=== PATIENT | female | born 1965 | race Caucasian/White ===

== ENCOUNTER → 2025-01-13 09:23 | Outpatient (CLI) | payer OTHER ==
[~2025-01-13 09:23] MED LIST: SYNTHROID50 MCG
[2025-01-13 10:22] LABS: HEMATOCRIT 38.1 % (36.0-45.00); MEAN CELL VOLUME 94.3 fL (80.00-100.00); MEAN CORPUSCULAR HEMOGLOBIN 32.2 pg (27.00-32.0); MEAN CORPUSCULAR HGB CONC 34.2 g/dl (32.0-36.0); PLATELET COUNT 243 K/uL (150-450); RED BLOOD COUNT 4.04 M/uL (4.00-6.00)
[2025-01-13 11:33] LABS: BILIRUBIN TOTAL 0.62 mg/dL (0.3-1.2); CREATININE SERUM 0.72 mg/dL (0.55-1.02); GFR 82.62; POTASSIUM 3.96 mEq/L (3.5-5.1)
[2025-01-13 13:30] LABS: FOLIC ACID 19.16 ng/ml (4.78-20)
[2025-01-13 13:33] LABS: MANUAL PLATELET COUNT 320
[2025-01-13 13:34] LABS: PLATELET ESTIMATE NORMAL (NORMAL)
[2025-01-13 16:48] LABS: % SATURACION 21.5 % (15-50); FERRITIN 55.2 NG/ML (8-252); T4 FREE 0.87 NG/ML (0.76-1.46); TSH 4.54 uIU/mL (0.358-3.74)
[2025-01-14 09:12] LABS: ANTI THYROID PEROXIDASE 88 IU/mL (0-34)
[2025-01-14 15:08] LABS: hgb a 97.4 % (96.4-98.8); hgb a2 2.6 % (1.8-3.2); hgb f 0 % (0.0-2.0); hgb s 0 % (0.0)
== END | disposition home or self-care (01) ==
LOC: LAB 09:23
PROVIDERS: ATTEND Internal Medicine Hematology & Oncology
DX: Q79.61 Classical Ehlers-Danlos syndrome (principal); E06.3 Autoimmune thyroiditis; D51.3 Other dietary vitamin B12 deficiency anemia; I95.1 Orthostatic hypotension; B27.90 Infectious mononucleosis, unspecified without complication; D50.8 Other iron deficiency anemias; R79.9 Abnormal finding of blood chemistry, unspecified; I10 Essential (primary) hypertension; R74.02 Elevation of levels of lactic acid dehydrogenase [LDH]; K76.89 Other specified diseases of liver; D55.0 Anemia due to glucose-6-phosphate dehydrogenase [G6PD] deficiency; D51.1 Vitamin B12 deficiency anemia due to selective vitamin B12 malabsorption with proteinuria; D51.0 Vitamin B12 deficiency anemia due to intrinsic factor deficiency; E03.8 Other specified hypothyroidism

== ENCOUNTER 2025-02-25 14:18 | Outpatient (CLI) | payer OTHER ==
[2025-02-25 14:49] LABS: BASO % 1.1 % (0.1-1.2); EOS # 0.29 (0.04-0.54); EOS % 6.6 % (0.7-7.0); HEMATOCRIT 35.9 % (34.1-44.9); HEMOGLOBIN 11.8 g/dL (11.2-15.7); LYMPH % 29.5 % (19.3-53.1); MEAN CORPUSCULAR HEMOGLOBIN 31.1 pg (25.6-32.2); MONO # 0.34 (0.24-0.82); MONO % 7.7 % (4.7-12.5); NEUT # 2.41 (1.56-6.13); NEUT % 54.9 % (34.0-71.1); PLATELET COUNT 203 K/uL (163-369); RED CELL DISTRIBUTION WIDTH 12.7 % (11.6-14.4)
[2025-02-25 15:05] LABS: ERYTHROCYTE SEDIMENTATION RATE 2 mm/hr (0-30)
== END 2025-02-25 14:22 | disposition home or self-care (01) ==
LOC: LAB 14:18
PROVIDERS: ATTEND Psychiatry & Neurology Neurology
DX: G62.9 Polyneuropathy, unspecified (principal); M06.00 Rheumatoid arthritis without rheumatoid factor, unspecified site; Z11.3 Encounter for screening for infections with a predominantly sexual mode of transmission; D51.9 Vitamin B12 deficiency anemia, unspecified